=== PATIENT | male | born 1945 | race Caucasian/White ===

== ENCOUNTER → 2018-07-13 | Outpatient (CLI) | payer MEDICARE, OTHER ==
[~2018-07-13] MED LIST: ESOM20CA PO; ESOM40CA PO; LISI-170 PO; PARO20TA4 PO
== END | disposition home or self-care (01) ==
LOC: STAR 11:59
PROVIDERS: ATTEND Surgery
DX: Z01.812 Encounter for preprocedural laboratory examination (principal); K40.90 Unilateral inguinal hernia, without obstruction or gangrene, not specified as recurrent
CPT/HCPCS: 93005

== ENCOUNTER 2018-07-22 06:13 | Day surgery (SDC) | payer MEDICARE, OTHER ==
[2018-07-13 12:43] VITALS: BP 121/79
[~2018-07-22] VITALS: Ht 182.9 cm; Wt 82.2 kg
[2018-07-22] MEDS ORDERED: LACTATED RINGERS 1,000 ML IV SCH (06:45)
[2018-07-22] MEDS ORDERED: SCOPOLAMINE PATCH, 1.5MG PATCH.TD72 TD ONE (07:00)
[2018-07-22] MEDS ORDERED: ONDANSETRON 2MG/ML, 2ML IVPush ONE ×2 (07:00→08:00)
[2018-07-22] MEDS ORDERED: GABAPENTIN 300 MG CAPSULE PO ONE (07:00)
[2018-07-22] MEDS ORDERED: ACETAMINOPHEN 500 MG TABLET PO ONE (07:00)
[2018-07-22] MEDS ORDERED: BUPIVACAINE/PF-EPI 0.5% 1:200K ONE (07:25)
[2018-07-22] MEDS ORDERED: FENTANYL PF 100 MCG/2ML ONE (08:20)
[2018-07-22] MEDS ORDERED: DEXAMETHASONE 4 MG/ML, 1ML ONE (08:23)
[2018-07-22] MEDS ORDERED: CEFAZOLIN 1,000 MG ONE (08:23)
[2018-07-22] MEDS ORDERED: PROPOFOL 10 MG/ML, 20ML ONE (08:23)
[2018-07-22] MEDS ORDERED: ONDANSETRON 2MG/ML, 2ML ONE (08:23)
[2018-07-22] MEDS ORDERED: LIDOCAINE-MPF 2% ,5ML ONE (08:26)
[2018-07-22] MEDS ORDERED: BUPIVACAINE/PF 0.5% INFIL ONE (08:53)
[2018-07-22] MEDS ORDERED: FENTANYL PF 100 MCG/2ML IV PRN (09:00)
[2018-07-22] MEDS ORDERED: OXYcodone 5 MG/5 ML ORAL.SOL UDC PO PRN (09:00)
[2018-07-22] MEDS ORDERED: PROMETHAZINE 25 MG/ML, 1ML IV PRN (09:00)
[2018-07-22] MEDS ORDERED: MEPERIDINE/PF 25MG/0.5ML IVPush PRN (09:00)
[2018-07-22] MEDS ORDERED: MORPHINE SULFATE 4 MG/ML, 1ML IVPush PRN (09:00)
[2018-07-22] MEDS ORDERED: ONDANSETRON ODT 8 MG PO PRN (09:00)
[2018-07-22] MEDS ORDERED: ONDANSETRON 2MG/ML, 2ML IV PRN (09:00)
[2018-07-22] MEDS ORDERED: PROMETHAZINE 25 MG SUPP PR PRN (09:00)
[2018-07-22] MEDS ORDERED: EPHEDRINE 50 MG/ML, 1ML ONE ×2 (09:41)
== END 2018-07-22 16:15 | disposition home or self-care (01) ==
LOC: OUT 06:13
PROVIDERS: ATTEND Surgery
DX: K40.90 Unilateral inguinal hernia, without obstruction or gangrene, not specified as recurrent (principal); I10 Essential (primary) hypertension; K21.9 Gastro-esophageal reflux disease without esophagitis; G47.33 Obstructive sleep apnea (adult) (pediatric)
CPT/HCPCS: 49505; C1781; J0690; J1100; J2405; J2704; J3010; J3490; J7120